=== PATIENT | male | born 1960 | race Caucasian/White ===

== ENCOUNTER 2019-01-14 22:01 | Emergency (ER) | payer BC ==
[2019-01-14] MEDS ORDERED: XYLOCAINE 2% HCL 20 ML MDV ONE (22:39)
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
[2019-01-15] MEDS ORDERED: Augmentin 875-125 Tablet PO ONE (00:10)
[2019-01-15] MEDS ORDERED: Adacel Vial IM ONE ×2 (00:10→00:25)
[2019-01-15] MEDS ORDERED: XYLOCAINE 2% HCL 20 ML MDV IJ ONE (00:11)
[2019-01-15] MEDS ORDERED: Augmentin 875-125 Tablet ONE (00:25)
[2019-01-15 01:10] VITALS: BP 155/90; PULSE 74; O2SAT 97
== END 2019-01-15 00:58 | disposition home or self-care (01) ==
LOC: ED 22:01
DX: S51.832A Puncture wound without foreign body of left forearm, initial encounter (principal); W26.0XXA Contact with knife, initial encounter
CPT/HCPCS: 12001; 90471; 90715; 96372; 99284; A9270-GY